=== PATIENT | male | born 1975 | race Caucasian/White ===

== ENCOUNTER 2020-10-08 18:01 | Emergency (ER) | payer OTHER ==
[2020-10-08] MEDS ORDERED: IBU600 MG PO (20:42)
== END 2020-10-08 21:28 | disposition home or self-care (01) ==
LOC: ER1 18:01
DX: M79.672 Pain in left foot (principal); W01.0XXA Fall on same level from slipping, tripping and stumbling without subsequent striking against object, initial encounter
CPT/HCPCS: 73630; 99283